=== PATIENT | male | born 1960 | race Caucasian/White ===

== ENCOUNTER 2024-12-02 03:42 | Day surgery (SDC) | payer OTHER, SELFPAY ==
[2024-11-23 13:37] VITALS: BMI 29.0
--- OUTSIDE RECORDS SUMMARY | 2024-12-02 03:45 | XMS_ITS | Clinical Summary ---
Author Organization [facility] Address [address] [place] [id number] Care Team Providers Care Belt Polisher Name Role Phone Heather Brown Primary Care Provider [phone] Allergies No known active allergies Medications olmesartan (BENICAR) 20 mg tablet Take 1 tablet (20 mg total) by mouth daily Active pravastatin (PRAVACHOL) 40 mg tablet Take 1 tablet (40 mg total) by mouth nightly Active Active Problems Problem Noted Date Diagnosed Date Basal cell carcinoma (BCC) of face 09/17/2016 Social History Tobacco Use Types Packs/Day Years Used Date Smoking Tobacco: Never Personal Safety Answer Date Recorded Getting School Help Needed Not on file 01/27 Sex and Gender Information Value Date Recorded Sex Assigned at Not on file 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 Gender Identity Not on file Sexual Orientation Not on file Obstetrics History Last Filed Vital Signs Vital Sign Reading Time Taken Comments Blood Pressure 118/72 01/29/2024 9:26 AM CDT Pulse 78 01/29/2024 9:26 AM CDT Temperature 36.8 C (98.3 F) 01/29/2024 9:26 AM CDT Respiratory Rate 18 01/29/2024 9:26 AM CDT Oxygen Saturation 99% 01/29/2024 9:26 AM CDT Inhaled Oxygen Concentration - - Weight 89.8 kg (198 lb) 01/29/2024 9:26 AM CDT Height 177.8 cm (5' 10) 01/29/2024 9:26 AM CDT Body Mass Index 28.41 01/29/2024 9:26 AM CDT Plan of Treatment Health Maintenance Due Date Last Done Comments Colon Cancer Screening-Colonoscopy 1960 Depression Screening 1960 Fall Risk Assessment 1960 Hepatitis C Screening 1960 Prostate Cancer Screening-PSA 1959 DTaP/Tdap/Td Vaccine (1 - Tdap) 1970 Hepatitis B Screening 1977 Pneumococcal vaccine 65+ (1 of 1 - PCV) 2009 Zoster Vaccine (1 of 2) 2009 Well Visit 65+ 2024 Influenza Vaccine (Season Ended) 2025 Insurance [facility] H[facility]/PPO Address: [facility] [address] [place] [address] Care Teams Belt Polisher Relationship Specialty Start Date End Date Heather Brown PA [facility] [place], [place] [id number] PCP - General Family Practice 01/29/24
--- OUTSIDE RECORDS SUMMARY | 2024-12-02 03:45 | XMS_ITS | Referral Summary ---
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PPO Address: [facility] [facility] [id number] [place] [id number] Care Teams Type Casting Machine Operator Relationship Specialty Start Date End Date Heather Brown PA [address] [place] [id number] PCP - General Family Practice 01/29/24
[2024-12-02 08:15] VITALS: BP 116/85; PULSE 96; RESP 16; TEMP 36.9; O2SAT 99
[2024-12-02] MEDS: LACTATED RINGERS 1,000 ML 150 ML IV CONT (08:25)
--- NOTE | 2024-12-02 09:11 | P.PNAN_ITS ---
Anes - Initial Pre Proc Eval Procedure: Operation Date: 12/02/24 09:30 Proposed Procedures p Screening Colonoscopy - Byron Gallo MD Date/Time: 12/02/24 09:11 Surgeon: Byron Gallo MD Pre Op Diagnosis: Screening Patient Data Age: 64 Gender: M Height: 1.78 m Weight: 91 kg Last Vital Signs Temp 98.5 F 12/02/24 08:15 Pulse 96 12/02/24 08:15 Resp 16 12/02/24 08:15 BP 116/85 12/02/24 08:15 Pulse Ox 99 12/02/24 08:15 O2 Del Method Room Air 12/02/24 08:15 Allergies Allergy/AdvReac Type Severity Reaction Status Date / Time No Known Allergies Allergy Verified 12/02/24 08:14 Home Medications ?Medication ?Instructions ?Recorded ?Confirmed ?Type olmesartan 20 mg tablet 20 mg PO DAILY #90 tabs 08/13/24 12/02/24 Rx pravastatin 40 mg tablet 40 mg PO QHS #90 tabs 08/13/24 12/02/24 Rx Patient hx anesthesia problems: none Family hx anesthesia problems: none Results Review: All pre-operative results and documents have been reviewed as part of the pre- operative evaluation. [facility] Past Medical History Medical History (Updated 05/26/23 @ 23:25 by Heather Brown PA-C) [place]atoconus Dyslipidemia Impaired fasting glucose Encounter for general adult medical examination without abnormal findings Surgical History Surgical History (Updated 05/26/23 @ 15:57 by Heather Brown PA-C) No pertinent past surgical history Family History Family History Mother Uterine cancer Social History Social History (Updated 08/12/24 @ 14:49 by Abiel Montanez) Social History: 08/11/24 Patient declined SDCT Smoking status: Never smoker Alcohol intake: current Drinks per week: 10 Substance use: unknown Lack of Transportation: No Lack of Food: Never True Current Housing: I Have Housing Concerned About Future Housing: No Difficulty Paying Gas/Electric Bills: No Difficulty Paying for Meds: No Currently Unemployed: No Education: High School Diploma/GED Difficulty w/ Childcare or Family Care: No Living arrangements: alone Spiritual care concerns: No Anes - Eval Final PreProcedure Day of Procedure 12/02/24 09:11 Patient weight: normal Heart: regular rate and rhythm Lungs: clear to auscultation Airway: Mallampati scale class II Neurological: alert and oriented Last oral intake: >/= 8 hours ASA classification: II Emergent: no Anesthetic plan: proceed Anesthesia type and monitoring: general GIVS and standard monitoring Results Review: All pre-operative results and documents have been reviewed as part of the pre- operative evaluation. Informed Consent: The patient's anesthetic plan and its attendant risks and benefits were discussed with the patient/family/POA. Questions were solicited and answers provided to the satisfaction of the patient/family/POA.
--- NOTE | 2024-12-02 09:29 | PM.IMHP ---
H&P: HPI History of Present Illness Date/Time: 12/02/24 09:29 Chief Complaint: Screening colonoscopy Narrative: This is the patient's 2nd colonoscopy after 20 years. There are no GI symptoms and there is no family history of colorectal cancer. Review of Systems Review of Systems: All systems reviewed & are unremarkable except as noted in HPI and below PMFSH Past Medical History Medical History (Updated 12/02/24 @ 09:30 by Byron Gallo MD) [place]at[place] Dyslipidemia Impaired fasting glucose Encounter for general adult medical examination without abnormal findings Surgical History Surgical History (Updated 05/26/23 @ 15:57 by Heather Brown PA-C) No pertinent past surgical history Family History Family History Mother Uterine cancer Social History Social History (Updated 08/12/24 @ 14:49 by Abiel Montanez) Social History: 08/11/24 Patient declined SDOH Smoking status: Never smoker Alcohol intake: current Drinks per week: 10 Substance use: unknown Lack of Transportation: No Lack of Food: Never True Current Housing: I Have Housing Concerned About Future Housing: No Difficulty Paying Gas/Electric Bills: No Difficulty Paying for Meds: No Currently Unemployed: No Education: High School Diploma/GED Difficulty w/ Childcare or Family Care: No Living arrangements: alone Spiritual care concerns: No Meds Home Medications and Allergies Home Medications ?Medication ?Instructions ?Recorded ?Confirmed ?Type olmesartan 20 mg tablet 20 mg PO DAILY #90 tabs 08/13/24 12/02/24 Rx pravastatin 40 mg tablet 40 mg PO QHS #90 tabs 08/13/24 12/02/24 Rx Allergies Allergy/AdvReac Type Severity Reaction Status Date / Time No Known Allergies Allergy Verified 12/02/24 08:14 Vital Signs Vital Signs - 24 hr 12/02/24 08:15 Temperature 98.5 F Pulse Rate 96 Respiratory Rate 16 Blood Pressure 116/85 Pulse Oximetry 99 Oxygen Delivery Room Air Exam Const: General: cooperative and healthy appearing Resp: Effort & Inspection: normal respiratory effort and able to speak in complete sentences Auscultation: clear to auscultation bilaterally Cardio: Rate: regular rate Rhythm: regular rhythm GI: Inspection: normal to inspection GI Palp: No No hepatosplenomegaly present Auscultation: normal bowel sounds Rectal Exam: deferred Skin: General skin exam: normal color Psych: Appearance: grossly normal Mental Status: mental status grossly normal Assessment and Plan Assessment and plan (1) Encounter for screening colonoscopy: Code(s): Z12.11 - Encounter for screening for malignant neoplasm of colon Status: Acute Assessment and Plan: The patient is deemed a good candidate for the procedure. Consent signed. Will proceed.
[2024-12-02] MEDS: SIMETHICONE ORAL SUSPENSION 20 MG/0.3 ML 30 ML BOTTLE 0.6 ML IRRIGATION (09:43)
--- NOTE | 2024-12-02 10:02 | S_PTH ---
PATIENT: Luke Gutierrez LOC: [facility] U#:[id number] AGE/SX: 64/M ROOM: RE12/02/[address]: Byron Gallo MD : 1960 BED: DIS: 12/02/2024 SPEC #: [id number] RECD: 12/02/24 11:57 STATUS: JANETT REQ #: [id number] LUCIANA: 12/02/24 10:[address]: Byron Gallo DEPT: [facility] Surgical RECD BY: Gaye Polo ENTERED: 12/02/24 11:58 SP TYPE: Surgical OTHR DR: Heather Brown PA-C Tissues: A - Colon Polypectomy B - Colon Polypectomy C - Colon Polypectomy Procedures: Hematoxylin and Eosin Stain Gross and Microscopic Level 4
[2024-12-02 10:05] VITALS: BP 118/77; PULSE 76; RESP 16; O2SAT 100
[2024-12-02 10:15] VITALS: BP 128/86; PULSE 71; RESP 15; O2SAT 96
[2024-12-02 10:25] VITALS: BP 120/91; PULSE 74; RESP 16; O2SAT 100
== END 2024-12-02 10:36 | disposition home or self-care (01) ==
PROVIDERS: PCP Physician Assistant Medical; Referring Provider Physician Assistant Medical; Visit Provider Internal Medicine Gastroenterology
PROC: 0DJD8ZZ Inspection of Lower Intestinal Tract, Via Natural or Artificial Opening Endoscopic (ICD-10-PCS; CPT 45378; principal; 2024-12-02 09:30)
DX: Z12.11 Encounter for screening for malignant neoplasm of colon (principal); K63.5 Polyp of colon; K64.8 Other hemorrhoids; K57.30 Diverticulosis of large intestine without perforation or abscess without bleeding; E78.5 Hyperlipidemia, unspecified; Z80.49 Family history of malignant neoplasm of other genital organs
CPT/HCPCS: 45385; 88305; J2003; J2704; J7120